=== PATIENT | female | born 1945 | race Caucasian/White ===

== ENCOUNTER 2020-02-23 09:54 | Emergency (ER) | payer MEDICARE, OTHER ==
[~2020-02-23] VITALS: Ht 167.6 cm; Wt 64.4 kg
[2020-02-23] MEDS ORDERED: COMBIVENT INH (10:10)
[2020-02-23] MEDS ORDERED: FUROSEMIDE 40 M40 MG PO (10:11)
[2020-02-23] MEDS ORDERED: ROXICODONE5 M2 PO (10:11)
[2020-02-23] MEDS ORDERED: GABAPENTIN100 MG PO (10:11)
[2020-02-23 10:30] LABS: ABSOLUTE BASOPHILS 0.1 thou/uL (0.0-0.2); ABSOLUTE EOSINOPHILS 0.1 thou/uL (0.0-0.7); ABSOLUTE LYMPHOCYTES 1.7 thou/uL (0.8-5.3); ABSOLUTE MONOCYTES 0.5 thou/uL (0.0-1.2); ABSOLUTE NEUTROPHILS 5.8 thou/uL (1.6-8.1); BASOPHILS 1.2 %; EOSINOPHILS 1.1 %; HEMOGLOBIN 10.2 gm/dL (12.0-15.0); LYMPHOCYTES 20.4 %; MCH 22.6 pg (26.0-34.0); MCHC 31.9 g/dL (28.0-37.0); MONOCYTES 6.6 %; MPV 8.8 fl. (7.2-11.1); NUCLEATED RBCS 0 /100WBC; PLATELET COUNT* 296 thou/uL (150-400); POLYS 70.7 %; RBC 4.51 mil/uL (4.20-5.00); RDW-CV 19.4 % (10.5-14.5); WBC 8.2 thou/uL (4.0-11.0)
[2020-02-23 10:41] LABS: CALCIUM 8.9 mg/dL (8.5-10.1); CREATININE 0.8 mg/dL (0.6-1.3); POTASSIUM 3.6 mmol/L (3.5-5.1)
[2020-02-23 10:52] LABS: ALBUMIN 3.9 g/dL (3.4-5.0); MAGNESIUM 1.7 mg/dL (1.8-2.4); TOTAL BILIRUBIN 0.4 mg/dL (<0.1-1.0); TOTAL PROTEIN 7.3 g/dL (6.4-8.2)
[2020-02-23 11:17] LABS: APTT 21.5 Seconds (25.0-31.3); PROTIME 10.5 Seconds (9.20-11.50)
[2020-02-23 14:23] VITALS: BP 135/85
--- NOTE | 2020-02-23 15:45 | EKG ---
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1945 Requested By: Carroll Jean Order Number: [id number] MD: Beck Gill Measurements Intervals [place] Rate: 71 P: -70 [place]: 116 QRS: 44 QRSD: 94 T: 58 QT: 406 QTc: 442 Interpretive Statements Sinus or ectopic atrial rhythm Nonspecific ST segment depression Borderline short [place] interval Low voltage, extremity leads No previous ECG available for comparison Electronically Signed On 02-23-2020 15:45:17 CDT by Beck Gill [email or web address] <ELECTRONICALLY SIGNED> By: Beck Gill MD, FACC 02/23/20 1545 1016 1016 Beck Gill MD, [facility] /EPI
== END 2020-02-23 14:24 | disposition home or self-care (01) ==
LOC: M.ERS 09:54
PROVIDERS: Family Medicine
DX: R06.00 Dyspnea, unspecified (principal); J44.9 Chronic obstructive pulmonary disease, unspecified; Z20.828 Contact with and (suspected) exposure to other viral communicable diseases; Z90.710 Acquired absence of both cervix and uterus

== ENCOUNTER → 2020-12-05 | Outpatient (CLI) | payer MEDICARE, OTHER ==
[~2020-12-05] MED LIST: ALEVE220 M1 PO; CHILDREN'S ZYRT10 M1 PO; COMBIVENT INH; COMBIVENT RESPIM4 GM INH; CYCLOBENZAPRINE5 MG PO; DULOXETINE HCL60 MG PO; FUROSEMIDE 20 M20 MG PO; GABAPENTIN100 MG PO; LYRICA150 MG PO; OXYCODONE HCL10 MG PO; PERFOROMIS20 MCG/2 M INH; PULMICORT0.5 MG/21 INH; ROXICODONE5 M2 PO; VOLTAREN GEL 1100 G1 TOP; WELLBUTRIN XL150 MG PO
== END ==
LOC: M.PC 09:13
PROVIDERS: ATTEND Physical Medicine & Rehabilitation
DX: M47.816 Spondylosis without myelopathy or radiculopathy, lumbar region (principal); M51.16 Intervertebral disc disorders with radiculopathy, lumbar region; F17.200 Nicotine dependence, unspecified, uncomplicated